=== PATIENT | male | born 1995 | race American Indian/Alaskan Native ===

== ENCOUNTER 2017-12-09 13:47 | Emergency (ER) | payer OTHER ==
[2017-12-09 18:11] LABS: Basophils % (Auto) 0.5 % (0.0-1.8); Eosinophils # (Auto) 0.1 K/mm3 (0.0-0.4); Eosinophils % (Auto) 1.2 % (0.0-4.3); Hematocrit 48.4 % (35.5-45.6); Hemoglobin 16.1 gm/dl (11.8-15.2); Lymphocytes % (Auto) 26.6 % (13.4-35.0); Mean Corpuscular HGB Conc 33 % (32-34); Mean Corpuscular Hemoglobin 30 pg (28-32); Mean Corpuscular Volume 89 fl (84-94); Monocytes # (Auto) 0.6 K/mm3 (0.0-0.8); Monocytes % (Auto) 8.2 % (0.0-7.3); Platelet Count 191 K/mm3 (140-440); Red Blood Count 5.44 M/mm3 (3.65-5.03); Red Cell Distribution Width 15.4 % (13.2-15.2)
[2017-12-09 18:17] LABS: Bilirubin,Urine NEG (Negative); Blood,Urine NEG (Negative); Mucus,Urine 3+ /HPF
[2017-12-09 18:18] LABS: Color,Urine Yellow (Yellow)
[2017-12-09 18:27] LABS: Amphetamine Screen,Urine PRESUMPTIVE NEGATIVE; Benzodiazepines Screen,Urine PRESUMPTIVE NEGATIVE; Cocaine Screen,Urine PRESUMPTIVE NEGATIVE; Methadone Screen,Urine PRESUMPTIVE NEGATIVE; Opiate Screen,Urine PRESUMPTIVE NEGATIVE
[2017-12-09 18:32] LABS: Alanine Aminotransferase 26 units/L (7-56); Albumin 4.4 g/dL (3.9-5); BUN/Creatinine Ratio 17; Blood Urea Nitrogen 20 mg/dL (9-20); Calcium 9.7 mg/dL (8.4-10.2); Hemolysis Index 9
[2017-12-09 18:47] LABS: Cannabinoid Screen,Urine PRESUMPTIVE POSITIVE
--- NOTE | 2017-12-09 20:36 | Emergency Department Report ---
HPI - General Chief Complaint: Psych Time Seen by Provider: 12/09/17 18:31 - HPI HPI: 22-year-old male presents to the emergency department with a complaint of hallucinations, and what he says are "negative thoughts." The patient says that he does not feel safe outside of the hospital because he feels that someone is out to get him. One of these negative thoughts is that he has thoughts of both being raped and raping someone. There is no one specifically he is targeting or thinks is targeting him. However he does have auditory hallucinations and raping someone is one of the things he is told to do. His visual hallucinations are mostly seeing specks of light. He denies any suicidal or homicidal ideations. He has a history of schizophrenia for which he takes medications and says he takes them compliantly. He recently got out of [facility] for his schizophrenia. ED Past Medical Hx - Past Medical History Previous Medical History?: No Hx Psychiatric Treatment: Yes (schizophrenia) - Surgical History Past Surgical History?: No - Social History Smoking Status: Current Every Day Smoker Substance Use Type: None - Medications Home Medications: Home Medications Medication Instructions Recorded Confirmed Last Taken Type Famotidine [Pepcid] 20 mg PO BID #20 tablet 05/11/15 Unknown Rx traMADol [Ultram] 50 mg PO Q6HR PRN #14 tablet 05/11/15 Unknown Rx ED Review of Systems ROS: Stated complaint: SI Other details as noted in HPI Comment: All other systems reviewed and negative Constitutional: denies: chills, fever Eyes: denies: eye pain, eye discharge, vision change ENT: denies: ear pain, throat pain Respiratory: denies: cough, shortness of breath, wheezing Cardiovascular: denies: chest pain, palpitations Gastrointestinal: denies: abdominal pain, nausea, diarrhea Genitourinary: denies: urgency, dysuria Musculoskeletal: denies: back pain, joint swelling, arthralgia Skin: denies: rash, lesions Neurological: denies: headache, weakness, paresthesias Psychiatric: auditory hallucinations, visual hallucinations, other (paranoia) Physical Exam - Physical Exam Vital Signs: Vital Signs 12/09/17 14:32 Temperature 98.6 F Pulse Rate 83 Respiratory 16 Rate Blood Pressure 124/72 O2 Sat by Pulse 96 Oximetry Physical Exam: GENERAL: The patient is well-developed well-nourished. HENT: Normocephalic. Atraumatic. Patient has moist mucous membranes. EYES: Extraocular motions are intact. NECK: Supple. Trachea is midline. CHEST/LUNGS: Clear to auscultation. There is no respiratory distress noted. HEART/CARDIOVASCULAR: Regular. There is no tachycardia. There is no murmur. ABDOMEN: Abdomen is soft, nontender. Patient has normal bowel sounds. There is no abdominal distention. SKIN: Skin is warm and dry. NEURO: The patient is awake, alert, and oriented. The patient is cooperative. The patient has no focal neurologic deficits. The patient has normal speech. MUSCULOSKELETAL: There is no tenderness or deformity. There is no limitation range of motion. There is no evidence of acute injury. ED Course Vital Signs 12/09/17 14:32 Temperature 98.6 F Pulse Rate 83 Respiratory 16 Rate Blood Pressure 124/72 O2 Sat by Pulse 96 Oximetry ED Medical Decision Making - Lab Data Result diagrams: 12/09/17 17:46 12/09/17 17:53 - Medical Decision Making This patient, with history of schizophrenia, presents with complaint of auditory and visual hallucinations and having some negative thoughts that include paranoia that someone is out to get him and he is also having thoughts of both being raped and raping someone else. Patient does not feel safe leaving the hospital secondary to the urine or delusions and thoughts of what he might do to others. While the patient denies having thoughts of killing anybody, the thoughts of raping other people certainly falls into the category of harming someone else and therefore I feel meets criteria to be made a 1013 and for inpatient psychiatric treatment. His labs have been unremarkable. Vital signs stable throughout his ED course. He appears medically cleared for psychiatric placement. - Differential Diagnosis schizophrenia, bipolar disorder, schizoaffective, substance abuse Critical Care Time: No Critical care attestation.: If time is entered above; I have spent that time in minutes in the direct care of this critically ill patient, excluding procedure time. ED Disposition Clinical Impression: Paranoia Schizophrenia Qualifiers: Schizophrenia type: unspecified Qualified Code(s): F20.9 - Schizophrenia, unspecified Disposition: [id number]/[id number] PSY HOSP/PSY UNIT Is pt being admited?: Yes Condition: Stable Referrals: PRIMARY CARE, [Primary Care Provider] - 3-5 Days Time of Disposition: 22:04
--- NOTE | 2017-12-10 13:35 | Consultation ---
History of Present Illness - Reason for Consult Consult date: 12/10/17 Reason for consult: Mental Health Evaluation Requesting physician: KUSHAL PARKS - Chief Complaint Chief complaint: "I fear for my life" - History of Present Psychiatric Illness 22-year-old male presents to the emergency department with a complaint of hallucinations and what he says are "negative thoughts." Today the patient is calm and cooperative during the assessment. He stated that he fear being raped by someone. He stated that he felt like raping someone on admission , but denies that now. He stated that these fears has been active for several days, along with being depressed. He rate his depression 4/10 with 10 being the worse. He stated that he was a patient recently at [facility]. He stated that he take Risperdal and Depakote. He denies SI/HI's and AVH's. He stated that he smoke marijuana often, but denies alcohol consumption (etoh). Medications and Allergies Allergies Allergy/AdvReac Type Severity Reaction Status Date / Time No Known Allergies Allergy Verified 05/11/15 00:54 Home Medications Medication Instructions Recorded Confirmed Last Taken Type Famotidine [Pepcid] 20 mg PO BID #20 tablet 05/11/15 Unknown Rx traMADol [Ultram] 50 mg PO Q6HR PRN #14 tablet 05/11/15 Unknown Rx Past psychiatric history - Past Medical History Past Medical History: No medical history Past Surgical History: No surgical history - past Psychiatric treatment and history psychiatric treatment history: Multiple inpatient psy settings. Denies a fam psy hx. - Social History Social history: lives with family Mental Status Exam - Vital signs Last Vital Signs Temp 98.6 F 12/09/17 14:32 Pulse 83 12/09/17 14:32 Resp 20 12/10/17 12:40 BP 124/72 12/09/17 14:32 Pulse Ox 99 12/10/17 12:40 - Exam Narrative exam: Narrative exam: MSE: Appearance: calm, cooperative Behavior: regular eye contact Speech: regular rate and tone Mood: "sad" Affect: congruent to mood Thought Process: circumstantial Thought Content: denies SI/HI's and AVH's, paranoid Motor Activity: lying in bed Cognition: A/O x 3 Insight: variable Judgment: variable Results Result Diagrams: 12/09/17 17:46 12/09/17 17:53 Abnormal lab results 12/09/17 12/09/17 12/09/17 Range/Units 17:46 17:53 17:53 RBC 5.44 H (3.65-5.03) M/mm3 Hgb 16.1 H (11.8-15.2) gm/dl Hct 48.4 H (35.5-45.6) % RDW 15.4 H (13.2-15.2) % [place] % (Auto) 8.2 H (0.0-7.3) % Chloride 93.2 L (98-107) mmol/L Total Protein 8.6 H (6.3-8.2) g/dL Ur Specific [place] (1.003-1.030) Salicylates < 0.3 L (2.8-20.0) mg/dL Valproic Acid (50-100) ug/mL 12/09/17 12/09/17 Range/Units 18:00 19:12 RBC (3.65-5.03) M/mm3 Hgb (11.8-15.2) gm/dl Hct (35.5-45.6) % RDW (13.2-15.2) % [place] % (Auto) (0.0-7.3) % Chloride (98-107) mmol/L Total Protein (6.3-8.2) g/dL Ur Specific [place] 1.031 H (1.003-1.030) Salicylates (2.8-20.0) mg/dL Valproic Acid 36.5 L (50-100) ug/mL All other labs normal. Assessment and Plan Assessment and plan: Impression: Unspecified Psychosis. Cannabis Use DO. Today the patient is calm and cooperative during the assessment. VA 36.5. DDx: R/O Bipolar DO with psychosis, R/O Schizoaffective DO, R/O Substance Induced Psychosis Recommendation/Plan: Continue 1013 with placement to [facility] today.
[2017-12-10 13:39] VITALS: BP 122/74
== END 2017-12-10 14:32 ==
LOC: ED 13:47 → EEVIPCON 13:47 → ED 12-10 14:32
DX: F20.0 Paranoid schizophrenia (principal); F17.200 Nicotine dependence, unspecified, uncomplicated
CPT/HCPCS: 36415; 80053; 80164; 80307; 81001; 85025; 99284; G0480; 80320